=== PATIENT | male | born 1970 | race Caucasian/White ===

== ENCOUNTER 2022-04-27 11:40 | Day surgery (SDC) | payer OTHER ==
[~2022-04-27] VITALS: Ht 180.3 cm; Wt 124.5 kg
[2022-04-27] MEDS ORDERED: Lisinopril2.5 MG (11:56)
== END 2022-04-27 13:52 | disposition home or self-care (01) ==
LOC: ORSCSDS 11:40
PROVIDERS: Surgery
PROC: 0DBN8ZX Excision of Sigmoid Colon, Via Natural or Artificial Opening Endoscopic, Diagnostic (ICD-10-PCS; principal; 2022-04-27 13:00)
DX: Z12.11 Encounter for screening for malignant neoplasm of colon (principal); D12.5 Benign neoplasm of sigmoid colon; F41.8 Other specified anxiety disorders; I10 Essential (primary) hypertension; U09.9 Post COVID-19 condition, unspecified; E66.9 Obesity, unspecified; Z68.39 Body mass index [BMI] 39.0-39.9, adult; Z79.899 Other long term (current) drug therapy
CPT/HCPCS: 88305; J2704; J7120

== ENCOUNTER 2022-08-08 19:45 | Emergency (ER) | payer OTHER ==
[~2022-08-08] VITALS: Ht 180.3 cm; Wt 121.6 kg
[~2022-08-08 19:45] MED LIST: Lisinopril2.5 MG
[2022-08-08 20:02] VITALS: BP 146/99
[2022-08-08] MEDS ORDERED: METFORMIN HCL500 M2 PO (20:04)
[2022-08-08] MEDS ORDERED: Prednisone20 MG PO (20:55)
== END 2022-08-08 21:06 | disposition home or self-care (01) ==
LOC: ER 19:45
DX: L25.5 Unspecified contact dermatitis due to plants, except food (principal); I10 Essential (primary) hypertension; E11.9 Type 2 diabetes mellitus without complications; Z88.5 Allergy status to narcotic agent; Z88.6 Allergy status to analgesic agent
CPT/HCPCS: 99283; J7512

== ENCOUNTER 2024-06-26 11:01 | Day surgery (SDC) | payer BC ==
[~2024-06-26] VITALS: Ht 180.3 cm; Wt 125.3 kg
[~2024-06-26 11:01] MED LIST changes: +ATOR80 PO; +DESLORATADINE5 MG PO; +METFORMIN HCL500 M2 PO; +METO25ER PO; +MULVITA PO; +NS 500 ML IV ONE; +Prednisone20 MG PO; +TICA90TA PO
[2024-06-26] MEDS ORDERED: Crestor40 MG PO (11:58)
--- NOTE | 2024-06-26 12:02 | NUR ---
06/26/24 1202 Kylie Hernandez TIME OUT DONE PRIOR TO BLOCK WITH DR MENENDEZ.
[2024-06-26] MEDS ORDERED: NS 500 ML IV ONE (12:10)
[2024-06-26] MEDS ORDERED: propofoL 20 ML IV ONE (12:24)
[2024-06-26 12:56] VITALS: BP 127/80
== END 2024-06-26 13:29 | disposition home or self-care (01) ==
LOC: ORSCSDS 11:01
PROVIDERS: Orthopaedic Surgery
PROC: 0XBK0ZX Excision of Left Hand, Open Approach, Diagnostic (ICD-10-PCS; principal; 2024-06-26 12:45)
DX: R22.32 Localized swelling, mass and lump, left upper limb (principal); I10 Essential (primary) hypertension; E11.9 Type 2 diabetes mellitus without complications; I25.2 Old myocardial infarction; F41.9 Anxiety disorder, unspecified; F32.A Depression, unspecified; Z79.82 Long term (current) use of aspirin; Z79.899 Other long term (current) drug therapy
CPT/HCPCS: 88304; J2704; J7040